=== PATIENT | male | born 1990 | race Caucasian/White ===

== ENCOUNTER 2016-11-04 20:55 | Emergency (ER) | payer OTHER ==
--- NOTE | 2016-11-04 21:24 | UC ---
UC General HPI - History of Current Complaint Chief Complaint: UCGeneralIllness Stated Complaint: NAUSEA/BODY NUMBNESS TINGLY Hx Obtained From: Patient Onset/Duration: Sudden Onset - felt like "dog snot" with tingling and tried to eat but it just didn't taste right., Still Present Onset Severity: Moderate Current Severity: Moderate Character: Tingling in the head went down to the fingers and toes. Associated Signs & Symptoms: Positive: Chest Pain - muscular upper chest pain., Headache - frontal parietal has resolved., Nausea. Negative: Dizziness, Diarrhea, SOB, Vomiting - Allergy/Home Medications Allergies/Adverse Reactions: Allergies Allergy/AdvReac Type Severity Reaction Status Date / Time Naproxen [From Aleve] Allergy Shortness Verified 11/04/16 21:01 of Breath seasonal allergy Allergy Congestion Uncoded 11/04/16 21:01 Home Medications: Home Medications Acetaminophen TAB* [Tylenol TAB*] 650 mg BID PRN 11/04/16 [History Confirmed ] PMH/Surg Hx/FS Hx/Imm Hx Endocrine History Of: Denies: Diabetes, Thyroid Disease Cardiovascular History Of: Denies: Pacemaker/ICD Respiratory History Of: Reports: Asthma - as child - Surgical History Surgical History: Yes Surgery Procedure, Year, and Place: L arm AVM fixed about age 2-4 mos old. T&A - Family History Known Family History: Positive: Cardiac Disease, Hypertension - Social History Occupation: Employed Full-time Lives: With Family Alcohol Use: Weekly Alcohol Amount: Weekends Substance Use Type: None Smoking Status (MU): Never Smoked Tobacco Type: Smokeless Tobacco Amount Used/How Often: 1 can per day Length of Time of Smoking/Using Tobacco: started about age [age] years old - Immunization History Most Recent Influenza Vaccination: NONE Most Recent Tetanus Shot: UTD Review of Systems Constitutional: Fatigue Cardiovascular: Chest Pain - muscular pain across chest around back, worse since June All Other Systems Reviewed And Are Negative: Yes Physical Exam Triage Information Reviewed: Yes Appearance: No Pain Distress, Ill-Appearing - fatigued, Obese Vital Signs: Initial Vital Signs Temp 98.1 F 11/04/16 21:02 Pulse 91 11/04/16 21:02 Resp 18 11/04/16 21:02 BP 151/78 11/04/16 21:02 Pulse Ox 99 11/04/16 21:02 Eyes: Positive: Conjunctiva Inflamed ENT: Positive: Pharynx normal, Nasal congestion, TMs normal Neck exam: Normal Respiratory Exam: Normal Cardiovascular Exam: Normal Abdomen Description: Positive: Nontender, No Organomegaly, Soft Bowel Sounds: Positive: Present Musculoskeletal Exam: Normal Neurological Exam: Normal Psychological: Positive: Other: - mildly anxious Skin Exam: Normal Course/Dx - Differential Dx - Multi-Symptom Differential Diagnoses: CVA, Metabolic Abnormality, Other - Anxiety Provider Diagnoses: Adjustment disorder with anxiety Discharge - Discharge Plan Condition: Stable Disposition: HOME Prescriptions: Cyclobenzaprine TAB* [Flexeril 10 MG TAB*] 10 mg PO TID PRN #30 tab PRN Reason: Pain - Chest Patient Education Materials: Anxiety (ED), Cyclobenzaprine (By mouth), How to Quit Using Smokeless Tobacco (ED) Additional Instructions: Please exercise regularly. Decrease carbohydrates. Stretch out chest muscles. [employer] Pure and Simple sunscreen every day. Stength training for oppositional muscles.
[2016-11-04] MEDS ORDERED: Cyclobenzaprine TAB* 10 MG PO ONE (21:50)
[2016-11-04 22:08] VITALS: BP 140/76
== END 2016-11-04 22:11 | disposition home or self-care (01) ==
LOC: UCCORT 20:55
DX: F43.22 Adjustment disorder with anxiety (principal); F17.220 Nicotine dependence, chewing tobacco, uncomplicated
CPT/HCPCS: 99212; A9270-GY; G0463

== ENCOUNTER 2017-03-01 17:44 | Emergency (ER) | payer OTHER ==
[2017-03-01 18:57] VITALS: BP 140/77
--- NOTE | 2017-03-01 20:27 | UC ---
Abdominal Pain Male HPI - HPI Summary HPI Summary: TWO DAYS OF LEFT LOWER ABDOMINAL PAIN. HAS BEEN WORKING MANY HOURS AND HAS LARGE BELT BUCKLE THAT HAS BEEN PRESSING AGAINST AREA. NO TRAUMA. NO TESTICULAR PAIN. NO PENIS PAIN. NO PAIN IN SCROTUM. NO FEVER. - History of Current Complaint Chief Complaint: UCAbdominalPain Stated Complaint: LEFT GROIN PAIN Time Seen by Provider: 03/01/17 19:36 Hx Obtained From: Patient Onset/Duration: Gradual Onset, Lasting Days, Still Present Severity Initially: Mild Severity Currently: Mild Pain Intensity: 9 Pain Scale Used: 0-10 Numeric Location: Discrete At: LLQ, Suprapubic Radiates to: LLQ Character: Aching Aggravating Factor(s):: Movement Associated Signs And Symptoms: Negative: Fever, Blood in Stool, Urinary Symptoms , Decreased Appetite - Risk Factors Testicular Torsion: Negative Cardiac Risk Factors: Negative - Allergies/Home Medications Allergies/Adverse Reactions: Allergies Allergy/AdvReac Type Severity Reaction Status Date / Time Naproxen [From Aleve] Allergy Shortness Verified 03/01/17 18:50 of Breath seasonal allergy Allergy Congestion Uncoded 03/01/17 18:50 Home Medications: Home Medications Ibuprofen TAB* [Motrin TAB* 600 MG] 600 mg PO ONCE PRN 03/01/17 [History Confirmed 03/01/17] PMH/Surg Hx/FS Hx/Imm Hx Previously Healthy: Yes - Surgical History Surgical History: Yes Surgery Procedure, Year, and Place: L arm AVM fixed about age 2-4 mos old - Family History Known Family History: Positive: Cardiac Disease, Hypertension - Social History Occupation: Employed Full-time Lives: With Family Alcohol Use: None Alcohol Amount: Weekends Substance Use Type: None Smoking Status (MU): Never Smoked Tobacco Type: Smokeless Tobacco Amount Used/How Often: 1 can per day Length of Time of Smoking/Using Tobacco: started about age [age] years old - Immunization History Most Recent Influenza Vaccination: NONE Most Recent Tetanus Shot: UTD Review of Systems Constitutional: Negative Skin: Negative Eyes: Negative ENT: Negative Respiratory: Negative Cardiovascular: Negative Gastrointestinal: Abdominal Pain Genitourinary: Negative Motor: Negative Neurovascular: Negative Musculoskeletal: Arthralgia, Myalgia Neurological: Negative Psychological: Negative Is Patient Immunocompromised?: No All Other Systems Reviewed And Are Negative: Yes Physical Exam Triage Information Reviewed: Yes Appearance: Well-Appearing, No Pain Distress, Well-Nourished Vital Signs: Initial Vital Signs Temp 98.1 F 03/01/17 18:51 Pulse 77 03/01/17 18:51 Resp 16 03/01/17 18:51 BP 140/77 03/01/17 18:51 Pulse Ox 96 03/01/17 18:51 Vital Signs Reviewed: Yes Eye Exam: Normal ENT Exam: Normal ENT: Positive: Normal ENT inspection, TMs normal Dental Exam: Normal Neck exam: Normal Neck: Positive: Supple, Nontender Respiratory Exam: Normal Respiratory: Positive: Chest non-tender, Lungs clear, Normal breath sounds, No respiratory distress Cardiovascular Exam: Normal Cardiovascular: Positive: RRR, No Murmur, Pulses Normal Abdominal Exam: Normal Abdomen Description: Positive: Nontender - NO TENDERNESS TO ABDOMEN, No Organomegaly, Soft, Other: - TESTICLES AND PENIS NONTENDER WITH OUT LESIONS. Negative: Distended, Guarding, Hernia @ - NO HERNIA APPRECIATED, McBurney's Point Tenderness Bowel Sounds: Positive: Present Musculoskeletal Exam: Normal Neurological Exam: Normal Psychological Exam: Normal Skin Exam: Normal Abd Pain Male Course/Dx - Differential Dx/Clinical Impression Differential Diagnosis/HQI/PQRI: Appendicitis, Bowel Obstruction, Constipation, Diverticulitis, Urinary Tract Infection Provider Diagnoses: LLQ ABDOMINAL WALL MUSCLE STRAIN Discharge - Discharge Plan Condition: Stable Disposition: HOME Patient Education Materials: Muscle Strain (ED) Forms: *Work Release Referrals: [facility] [place] [facility] [Outside] No Primary Care Phys,NOPCP [Primary Care Provider] - Additional Instructions: PRIMARY CARE: There are four major types of clinical preventive care: immunizations, screening , behavioral counseling (sometimes referred to as lifestyle changes), and chemoprevention. All four apply throughout the life span. It is important to establish and to have access to a Primary Care Physician, not only for follow- up regarding acute and chronic problems, but also for preventative care.
== END 2017-03-01 20:15 | disposition home or self-care (01) ==
LOC: UCCORT 17:44
DX: S39.011A Strain of muscle, fascia and tendon of abdomen, initial encounter (principal); J30.2 Other seasonal allergic rhinitis; X58.XXXA Exposure to other specified factors, initial encounter; Y92.9 Unspecified place or not applicable
CPT/HCPCS: 81003; 99211; G0463